=== PATIENT | female | born 2000 | race African-American/Black ===

== ENCOUNTER 2024-11-23 21:13 | Emergency (ER) | payer MEDICAID ==
[~2024-11-23] VITALS: Ht 170.2 cm; Wt 76.0 kg
[2024-11-23 21:23] VITALS: BP 139/82; PULSE 109; RESP 18; TEMP 99; O2SAT 98
[2024-11-23] MEDS ORDERED: LIDOCAINE 5% PATCH TOP SCH (21:30)
[2024-11-23] MEDS ORDERED: ALBUTEROL (0.083%) 2.5MG/3ML NEB HHN ONE (21:30)
[2024-11-23] MEDS ORDERED: ACETAMINOPHEN 325MG TABLET PO ONE (21:30)
[2024-11-24 00:13] LABS: HCG SCREEN NEGATIVE
[2024-11-24] MEDS ORDERED: ACET-2708 MT (03:35)
[2024-11-24] MEDS ORDERED: ALBU90AE INH (03:35)
== END 2024-11-24 04:08 | disposition home or self-care (01) ==
LOC: ER 21:13
DX: J45.901 Unspecified asthma with (acute) exacerbation (principal); R07.89 Other chest pain
CPT/HCPCS: 71101; 84703; 93005; 99285